=== PATIENT | female | born 1965 | race Two or more races ===

== ENCOUNTER 2021-08-14 00:50 | Emergency (ER) | payer MEDICAID ==
[~2021-08-14] VITALS: Ht 165.1 cm; Wt 72.6 kg
[2021-08-14] MEDS ORDERED: HYDROCODONE/APAP 10/325MG TABLET PO ONE (02:30)
[2021-08-14] MEDS ORDERED: HYDROCODONE/APAP 10/325MG TABLET ONE (02:41)
[2021-08-14 02:54] LABS: BASOPHILS % (AUTO) 0.5 % (0.0-2.0); EOSINOPHILS % (AUTO) 3.4 % (0.0-6.0); HEMATOCRIT 41 % (33-45); HEMOGLOBIN 14.2 g/dL (11.5-14.8); LYMPHOCYTES # (AUTO) 3.2 K/uL (0.8-4.8); LYMPHOCYTES % (AUTO) 38.3 % (20.0-44.0); MEAN CORPUSCULAR HGB CONC 35 g/dl (31.0-36.0); MEAN CORPUSCULAR VOLUME 86 fL (82-100); MONOCYTES # (AUTO) 0.9 K/uL (0.1-1.30); MONOCYTES % (AUTO) 10.5 % (2.0-12.0); NEUTROPHILS # (AUTO) 3.9 K/uL (1.8-8.9); NEUTROPHILS % (AUTO) 47.3 % (43.0-81.0); PLATELET COUNT (AUTO) 248 K/uL (150-450); WHITE BLOOD COUNT (AUTO) 8.3 K/uL (4.3-11.0)
[2021-08-14 03:33] LABS: CALCIUM, SERUM 8.5 mg/dL (8.5-10.1)
[2021-08-14] MEDS ORDERED: IBUPROFEN 600 MG TABLET ONE (04:58)
[2021-08-14] MEDS ORDERED: IBUPROFEN 600 MG TABLET PO ONE (05:00)
[2021-08-14] MEDS ORDERED: IBUP-1955 PO (05:02)
[2021-08-14] MEDS ORDERED: TRAM50TA2 PO (05:02)
[2021-08-14 05:13] VITALS: BP 153/83
== END 2021-08-14 05:13 | disposition home or self-care (01) ==
LOC: ER 01:01
DX: M79.652 Pain in left thigh (principal); I10 Essential (primary) hypertension; E11.9 Type 2 diabetes mellitus without complications; R22.42 Localized swelling, mass and lump, left lower limb
CPT/HCPCS: 36415; 73502; 73552; 80048-TC; 85025-TC; 93971-TC